=== PATIENT | female | born 1940 | race Caucasian/White ===

== ENCOUNTER → 2025-10-25 | Outpatient (CLI) | payer MEDICARE ==
[2025-10-25 15:16] LABS: BASO # 0.0 10^3/uL (0.0-0.2); BASO % 0.8 % (0.0-1.0); EOS # 0.2 10^3/uL (0.0-0.5); EOS % 3.7 % (0.0-3.0); LYMPH # 1.4 10^3/uL (1.5-5.0); LYMPH % 27.4 % (24.0-44.0); MONO # 0.5 10^3/uL (0.0-0.8); MONO % 11.0 % (2.0-8.0); NEUTROPHILS # 2.8 10^3/uL (1.5-8.5); NEUTROPHILS % 56.7 % (36.0-66.0); PLATELET COUNT, AUTOMATED 141 10^3/uL (150-450)
[2025-10-25 15:18] LABS: ALT/SGPT 16.0 U/L (7.0-40); AST/SGOT 16.0 U/L (<34); CALCIUM LEVEL 8.5 MG/DL (8.3-10.6); CARBON DIOXIDE LEVEL 32.0 MMOL/L (20-31); CHLORIDE LEVEL 98.0 MMOL/L (98-107); CHOLESTEROL LEVEL 146.0 MG/DL (<200); CHOLESTEROL RISK RATIO 4.41 (<5); CREATININE FOR GFR 0.98 MG/DL (0.55-1.30); GLOMERULAR FILTRATION RATE 55.9 (>32); LDL CHOLESTEROL 88.3 MG/DL (<100); NON-HDL-C 112.9 MG/DL; POTASSIUM SERUM 3.8 MMOL/L (3.5-5.1); SODIUM LEVEL 137.0 MMOL/L (136-145); TRIGLYCERIDES LEVEL 123.0 MG/DL (<150)
[2025-10-25 15:22] LABS: FREE T4 1.45 NG/DL (0.89-1.76)
== END ==
LOC: M WUC 11:32
PROVIDERS: ATTEND Nurse Practitioner Family
DX: E03.9 Hypothyroidism, unspecified (principal); I10 Essential (primary) hypertension; E78.2 Mixed hyperlipidemia